=== PATIENT | female | born 1950 | race Caucasian/White ===

== ENCOUNTER 2017-04-17 09:32 | Emergency (ER) | payer MEDICARE, OTHER ==
[2017-04-17 11:42] VITALS: BP 184/86
--- NOTE | 2017-04-17 12:08 | UC ---
Complaint Female HPI - HPI Summary HPI Summary: complaint of seeing blood in her urine this morning 2 weeks ago went to [place] and had URI and was coughing noticed that she was becoming jenny incontinent than ususal during URI took azo for 3 days and symptoms resolved 5 days ago yesterday started to have urgency and frequency of urination today slight pressure and burning with urination denies fever and chills denies backpain, flank pain and abdominal pain hx of UTI frequently at least 2 x year hasn't been on antibiotics recently - History Of Current Complaint Chief Complaint: UCGU Stated Complaint: URINARY COMPLAINT Time Seen by Provider: 04/17/17 11:52 Hx Obtained From: Patient Hx Last Menstrual Period: age 45 yrs - Allergies/Home Medications Allergies/Adverse Reactions: Allergies Allergy/AdvReac Type Severity Reaction Status Date / Time Sulfamethoxazole Allergy Intermediate Rash And Verified 04/17/17 11:42 w/Trimethoprim Itching [From Bactrim] Penicillins Allergy Difficulty Verified 04/17/17 11:42 Breathing Home Medications: Home Medications Aspirin TAB* [Aspirin 325 MG TAB*] 650 mg PO Q6H PRN 04/17/17 [History Confirmed 04/17/17] PMH/Surg Hx/FS Hx/Imm Hx Previously Healthy: Yes Cardiovascular History: Hypertension Respiratory History: Asthma GI/ History: Gastroesophageal Reflux - Surgical History Surgical History: Yes Surgery Procedure, Year, and Place: Age 20 pilonial cyst on spine - Family History Known Family History: Positive: None Negative: Cardiac Disease, Hypertension, Diabetes - Social History Occupation: Retired Lives: With Family Alcohol Use: None Substance Use Type: None Smoking Status (MU): Never Smoked Tobacco Review of Systems Constitutional: Negative Skin: Negative Eyes: Negative ENT: Negative Respiratory: Negative Cardiovascular: Negative Gastrointestinal: Negative Genitourinary: Dysuria, Hematuria, Frequency, Urgency Motor: Negative Neurovascular: Negative Musculoskeletal: Negative Neurological: Negative Psychological: Negative All Other Systems Reviewed And Are Negative: Yes Physical Exam Triage Information Reviewed: Yes Appearance: No Pain Distress, Well-Nourished Vital Signs: Initial Vital Signs Temp 98.8 F 04/17/17 11:38 Pulse 91 04/17/17 11:38 Resp 16 04/17/17 11:38 BP 184/86 04/17/17 11:38 Pulse Ox 97 04/17/17 11:38 Vital Signs Reviewed: Yes Eyes: Positive: Conjunctiva Clear ENT: Positive: Pharynx normal, TMs normal Neck: Positive: No Lymphadenopathy Respiratory: Positive: Lungs clear, Normal breath sounds, No respiratory distress, No accessory muscle use Cardiovascular: Positive: RRR, No Murmur, Pulses Normal Abdomen Description: Positive: Nontender, Soft. Negative: CVA Tenderness (R), CVA Tenderness (L), Distended, Guarding Bowel Sounds: Positive: Present Musculoskeletal: Positive: No Edema Neurological: Positive: Alert Psychological Exam: Normal Skin Exam: Normal Complaint Female Dx - Course Course Of Treatment: exam completed. UA postive for UTI, will rx for cipro d/t length of illness. discussed blackbox warning regardng cipor use and pt states understanding of risk with use - Differential Dx/Diagnosis Differential Diagnosis/HQI/PQRI: Ureteral Stone, Urinary Tract Infection Provider Diagnoses: UTI, elevated blood pressure Discharge - Discharge Plan Condition: Stable Disposition: HOME Prescriptions: Ciprofloxacin TAB* [Cipro 500 MG TAB*] 500 mg PO BID #14 tab Phenazopyridine TAB* [Pyridium 100 mg TAB*] 100 mg PO TID #6 tab Patient Education Materials: Urinary Tract Infection in Women (ED) Referrals: Kermit Woods MD [Primary Care Provider] - Additional Instructions: Please start antibiotic and pyridium as directed Increase fluids and rest Take acetaminophen for fever or pain Please review your discharge instructions. If your symptoms do not improve please call your primary care provider or return to urgent care. Your blood pressure is elevated. Please contact your primary care provider within 1 -4 weeks for further evaluation.
--- NOTE | 2017-04-18 18:46 | UC ---
Progress - Progress Note Progress Note: Urine Cx negative. Stop Cipro
== END 2017-04-17 12:36 | disposition home or self-care (01) ==
LOC: UCCORT 09:32
DX: N39.0 Urinary tract infection, site not specified (principal); R31.9 Hematuria, unspecified; Z87.440 Personal history of urinary (tract) infections; I10 Essential (primary) hypertension; J45.909 Unspecified asthma, uncomplicated; K21.9 Gastro-esophageal reflux disease without esophagitis; Z88.0 Allergy status to penicillin; Z88.2 Allergy status to sulfonamides
CPT/HCPCS: 81003; 87086; 99212; G0463